=== PATIENT | male | born 1965 | race Caucasian/White ===

== ENCOUNTER 2016-08-20 09:34 | Day surgery (SDC) | payer OTHER ==
[2016-08-16 09:21] VITALS: BMI 29.7
[2016-08-20] MEDS ORDERED: PROPOFOL 20 ML ONE ×3 (09:46→10:13)
[2016-08-20 12:49] VITALS: TEMP 98.3
[2016-08-20 12:52] VITALS: BP 105/63; PULSE 75
== END 2016-08-20 12:05 | disposition home or self-care (01) ==
LOC: FASU-ENDO 09:34
PROVIDERS: ATTEND Internal Medicine Gastroenterology
PROC: 0DJD8ZZ Inspection of Lower Intestinal Tract, Via Natural or Artificial Opening Endoscopic (ICD-10-PCS; principal; 2016-08-20 11:05)
DX: Z12.11 Encounter for screening for malignant neoplasm of colon (principal)